=== PATIENT | female | born 1980 ===

== ENCOUNTER → 2017-01-24 | Outpatient (CLI) | payer BC, OTHER ==
--- NOTE | ~2017-01-24 | MR10 ---
[facility] A Service of [facility] RADIOLOGY TEXT RESULTS PATIENT: DANYELL ORTEGA LOCATION: [facility] : 76 UNIT #: [id number] AGE: [address]: Angy Sandhu MD SEX: F ORDER DR: [id number] [facility] [address] [place], [place] [address] [id number] O MR#: [id number] Acc #: [id number] NAME: DANYELL ORTEGA : 1980 SEX: F STUDY DATE/TIME: 01/24/2017 19:52 UNIT: [facility] ROOM: STUDY DESCRIPTION: MR Ankle Wo Contrast Lt Attending Physician: Sana Sandhu M.D. Referring Physician: Sana Sandhu M.D. Ordering Physician: Sana Sandhu M.D. Primary Care Physician: No Primary Care Physician MRI CENTER REPORT This report is preliminary unless electronic signature is present. EXAM MRI left ankle/hindfoot without contrast 01/24/2017. COMPARISON Left ankle/foot radiographs 01/21/2017. HISTORY Order states left medial ankle pain, posterior tibial tendon, weakness. History sheet states medial ankle pain and swelling for 5 years with a collapsed foot. Pain near the medial malleolus. No known injury and no related surgery. FINDINGS The tibiotalar joint demonstrates a trace effusion without fracture, chondral/osteochondral lesion, or visible loose body. There is mild fluid distension of the flexor hallucis longus tendon sheath posterior to the ankle joint, which is nonspecific, given its potential communication to the joint space. There is also a small amount of fluid in the posterior subtalar joint recess. No ligament pathology is noted. There is a mildly hypertrophic interstitial longitudinal posterior tibial tendon tear superimposed on tendinosis. The longitudinal tear measures approximately 2.6 cm in length and is in the retromalleolar and proximal-most inframalleolar segments. The FDL and FHL tendons are intact. The remainder of the ankle tendons are normal. There is no visible abnormality of tibiospring ligament complex. There is no plantar tilt of the talar head. Posterior subtalar joint demonstrates mild arthrosis. There is mild edema STS. [facility] A Service of [facility] RADIOLOGY TEXT RESULTS PATIENT: DANYELL ORTEGA LOCATION: [facility] : 76 UNIT #: [id number] AGE: [address]: Angy Sandhu MD SEX: F ORDER DR: of the central plantar talus near the sinus tarsi, likely due to stress reaction. The remainder of the bony hindfoot and midfoot are normal. There is mild inflammation in the sinus tarsi. Tarsal tunnel is normal. Subcutaneous edema of the ankle and lower leg is noted medially and laterally. There is no marrow lesion or fracture. IMPRESSION 1. Hypertrophic longitudinal posterior tibial tendon tear measures approximately 2.6 cm in length. No visible abnormality of the tibiospring ligament complex. 2. Minimal tibiotalar and posterior subtalar joint effusions with secondary fluid in the flexor hallucis longus tendon sheath. Minimal posterior subtalar joint arthrosis. 3. No mentioned above is chronic plantar fasciopathy and chronic complete atrophy of the abductor digiti minimi muscle. 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 Dictated by... Rosemary Mora M.D. THIS IS AN ELECTRONICALLY VERIFIED REPORT Rosemary Mora M.D. at 01/28/2017 8:48 AM Chitra TD: 01/25/2017 14:39 JOB #: [id number] MRI CENTER REPORT Page 1 of 1 COPY
== END | disposition home or self-care (01) ==
LOC: CMRI 19:00
DX: M25.572 Pain in left ankle and joints of left foot (principal); R53.1 Weakness; S96.912A Strain of unspecified muscle and tendon at ankle and foot level, left foot, initial encounter; M62.572 Muscle wasting and atrophy, not elsewhere classified, left ankle and foot
CPT/HCPCS: 73721